=== PATIENT | female | born 1980 | race Caucasian/White ===

== ENCOUNTER → 2016-04-08 | Outpatient (CLI) | payer OTHER ==
[~2016-04-08] MED LIST: MISCCAP80 PO; PRENTAB26 PO; TYL325X PO
--- NOTE | 2016-04-08 10:35 | DIAGNOSTIC IMAGING REPORT ---
ULTRASOUND OF THE SPLEEN CLINICAL HISTORY: Left upper quadrant abdominal pain. COMPARISON STUDY: Abdominal ultrasound dated 12/27/2015. FINDINGS: Real-time, grayscale, and color flow sonography of the spleen is performed. The spleen is normal in size and homogeneous in echotexture, measuring up to 8.6 cm in length. No splenic lesion is seen. There is no perisplenic fluid. The splenic vessels at the splenic hilum appear patent. IMPRESSION: Unremarkable sonographic assessment of the spleen. Electronically signed by: Noah Griffiths M.D. 04/08/2016 10:34 AM Dictated Date/Time: 04/08/2016 10:33 AM
== END | disposition home or self-care (01) ==
LOC: C.ULTRBC 10:08
PROVIDERS: ATTEND Obstetrics & Gynecology
DX: R10.12 Left upper quadrant pain (principal)

== ENCOUNTER 2016-07-21 14:08 | Emergency (ER) | payer OTHER ==
[~2016-07-21] VITALS: Ht 160 cm; Wt 55.3 kg
[~2016-07-21 14:08] MED LIST changes: -MISCCAP80 PO
[2016-07-21 14:14] VITALS: TEMP 36.7; Ht 160 cm; Wt 55.3 kg
--- NOTE | 2016-07-21 14:40 | EMERGENCY ROOM VISIT NOTE ---
History First contact with patient: 14:18 Chief Complaint: CHEST PAIN Stated Complaint: CHEST PAIN History of Present Illness The patient is a 36 year old female who presents to the Emergency Room with complaints of right-sided chest pain which began approximately 10 hours ago. The patient states that she woke up this morning with sharp pains in the right side of her chest which radiate to the left side of the chest. She states that the pain has been sharp and intermittent. She rates the discomfort a 7/10. The pain is worse with movement and deep breaths. She describes a pressure- like sensation across her chest. There is no radiation of the pain. She did not take any medication today for the pain. She does report that this morning, she had tingling in both her hands which has resolved. She does have a history of heartburn but denies any previous history of similar symptoms to these. She denies palpitations, syncope, shortness of breath, nausea, vomiting or abdominal pain. She is otherwise healthy and takes only vitamins daily. She denies any cardiac history. She does not take control pills and is not a smoker. She reports that her father had a CVA at age 70 but she denies any family history of cardiac disease. Review of Systems A complete 10 point review of systems was reviewed with the patient with pertinent positives and negatives as per history of present illness. All else were negative. Social History Smoking Status: Never Smoker Current/Historical Medications Scheduled Probiotic Product (Probiotic), 1 CAP PO DAILY Allergies Coded Allergies: No Known Allergies (Unverified , 07/21/16) Physical Exam Vital Signs Date Time Temp Pulse Resp B/P (MAP) Pulse Ox O2 Delivery O2 Flow Rate FiO2 07/21/16 16:05 78 16 110/73 98 07/21/16 15:03 87 07/21/16 14:51 Room Air 07/21/16 14:14 36.7 76 22 139/91 93 Room Air Physical Exam VITALS: Vitals are noted on the nurse's note and reviewed by myself. Vital signs stable. GENERAL: This is a 36-year-old female, in no acute distress, nondiaphoretic, well-developed well-nourished. HEENT: Normocephalic. PERRLA. EOMI. Nares patent. Mucous membranes moist. Neck is supple without nuchal rigidity. HEART: Regular rate and rhythm without murmurs gallops or rubs. LUNGS: Clear to auscultation bilaterally without wheezes, rales or rhonchi. ABDOMEN: Soft, nontender to palpation. MUSCULOSKELETAL: There is reproducible pain with palpation of the right sternal border. NEURO: Patient was alert and oriented to person place and time. Medical Decision & Procedures ER Provider Diagnostic Interpretation: CHEST ONE VIEW PORTABLE CLINICAL HISTORY: chest pain dyspnea COMPARISON STUDY: No previous studies for comparison. FINDINGS: The bones soft tissues and hemidiaphragms are normal. The cardiomediastinal silhouette is normal. The lungs are clear. The pulmonary vasculature is normal. IMPRESSION: Negative chest. Laboratory Results 07/21/16 14:40 Red Blood Count 4.66, Mean Corpuscular Volume 82.6, Mean Corpuscular Hemoglobin 27.9, Mean Corpuscular Hemoglobin Concent 33.8, Mean Platelet Volume 10.3, Neutrophils (%) (Auto) 62.2, Lymphocytes (%) (Auto) 30.3, Monocytes (%) (Auto) 6.2, Eosinophils (%) (Auto) 1.1, Basophils (%) (Auto) 0.1, Neutrophils # (Auto) 4.53, Lymphocytes # (Auto) 2.21, Monocytes # (Auto) 0.45, Eosinophils # (Auto) 0.08, Basophils # (Auto) 0.01 07/21/16 14:40 Test 07/21/16 14:36 07/21/16 14:40 07/21/16 14:49 Urine Test NEG (NEG) White Blood Count 7.29 K/uL (4.8-10.8) Red Blood Count 4.66 M/uL (4.2-5.4) Hemoglobin 13.0 g/dL (12.0-16.0) Hematocrit 38.5 % (37-47) Mean Corpuscular Volume 82.6 fL (80-100) Mean Corpuscular Hemoglobin 27.9 pg (25-34) Mean Corpuscular Hemoglobin Concent 33.8 g/dl (32-36) Platelet Count 310 K/uL (130-400) Mean Platelet Volume 10.3 fL (7.4-10.4) Neutrophils (%) (Auto) 62.2 % Lymphocytes (%) (Auto) 30.3 % Monocytes (%) (Auto) 6.2 % Eosinophils (%) (Auto) 1.1 % Basophils (%) (Auto) 0.1 % Neutrophils # (Auto) 4.53 K/uL (1.4-6.5) Lymphocytes # (Auto) 2.21 K/uL (1.2-3.4) Monocytes # (Auto) 0.45 K/uL (0.11-0.59) Eosinophils # (Auto) 0.08 K/uL (0-0.5) Basophils # (Auto) 0.01 K/uL (0-0.2) RDW Standard Deviation 44.5 fL (36.4-46.3) RDW Coefficient of Variation 14.8 % (11.5-14.5) Immature Granulocyte % (Auto) 0.1 % Immature Granulocyte # (Auto) 0.01 K/uL (0.00-0.02) Prothrombin Time 10.6 SECONDS (9.0-12.0) Prothromb Time International Ratio 1.0 (0.9-1.1) Activated Partial Thromboplast Time 27.8 SECONDS (21.0-31.0) Partial Thromboplastin Ratio 1.1 Anion Gap 7.0 mmol/L (3-11) Est Creatinine Clear Calc Drug Dose 86.9 ml/min Estimated GFR () 120.8 Estimated GFR (Non- 104.2 BUN/Creatinine Ratio 12.5 (10-20) Calcium Level 8.4 mg/dl (8.5-10.1) Total Bilirubin 0.4 mg/dl (0.2-1) Aspartate Amino Transf (AST/SGOT) 11 U/L (15-37) Alanine Aminotransferase (ALT/SGPT) 18 U/L (12-78) Alkaline Phosphatase 50 U/L (45-117) Total Protein 8.2 gm/dl (6.4-8.2) Albumin 3.8 gm/dl (3.4-5.0) Globulin 4.4 gm/dl (2.5-4.0) Albumin/Globulin Ratio 0.9 (0.9-2) Bedside D-Dimer 406 ng/mlFEU (0-450) Bedside Troponin I < 0.030 ng/ml (0-0.045) ECG Indication: chest pain Rate (beats per minute): 81 Rhythm: normal sinus Findings: no acute ischemic change, no ectopy Comparison ECG Date: no prior available ED Course The patient was evaluated as above. Labs were drawn and IV access was obtained. Patient was reevaluated and findings were discussed. She is ready for discharge. Discharge instructions were reviewed with the patient. The patient verbalized understanding of my assessment and treatment plan and was discharged home in good condition. Medical Decision Differential diagnosis includes acute coronary syndrome, pulmonary embolism, pneumothorax, pericarditis, myocarditis, endocarditis, anxiety, musculoskeletal pain, GERD, costochondritis, pneumonia, among others. The patient is a 36-year-old female who presents today complaining of right- sided chest pain. Labs revealed no leukocytosis, anemia or concerning electrolyte abnormalities. Troponin was not elevated. D-dimer was not elevated. Urine was negative. EKG was interpreted by myself and shows and normal sinus rhythm without ischemia or ectopy. Chest x-ray was unremarkable. The patient's pain is reproducible to palpation of the right sternal border. I feel she likely has costochondritis or other musculoskeletal cause of her pain. She was instructed to take ibuprofen, 600 mg every 6 hours until symptoms have resolved. She was instructed to follow-up with her primary care provider this week for further evaluation. The patient's case was reviewed with Dr. Maddox, ED attending physician, who agreed with my assessment and treatment plan. Based on the patient's presentation and work up, I feel the patient is stable for outpatient treatment. The patient was educated to return to the emergency department for any worsening of their current condition or new/concerning symptoms. She will follow up with her PCP. Medication reconciliation: I attest that I have personally reviewed the patient 's current medication list. Blood pressure screening: Patient was found to have normal blood pressure on screening and does not require follow-up. Impression Primary Impression: Right-sided chest pain Departure Information Dispostion Home / Self-Care Condition GOOD Referrals No Doctor, Assigned (PCP) Patient Instructions My [facility] Additional Instructions You have been treated in the Emergency Department for your Chest Pain. Laboratory results and Imaging Studies have ruled out any acute cardiac or pulmonary cause of your chest pain. You should begin taking ibuprofen, 600 mg every 6 hours until your pain has resolved. This is an eewu-puk-lnetmlk medication. For pain control, you can also use the following giyf-jjj-djfhgxb medicines (if >12 yo): - Regular strength (325mg/tab) Tylenol (acetaminophen) 2 tabs every 4-6 hours as needed. Do not exceed 12 tablets in a 24 hour period. Avoid taking more than 4 grams (4000 mg) of Tylenol per day. This includes any other sources of acetaminophen you may take on a regular basis. You should schedule a follow-up appointment with your Primary Care Provider in 2 -3 days for further evaluation from today's Emergency Department visit. Return to the Emergency Department if your current symptoms worsen despite treatment course outlined above, or if you develop any of the following symptoms : worsening chest pain, associated jaw/arm pain, nausea, dizziness, shortness of breath, bloody cough, or fainting.
--- NOTE | 2016-07-21 14:51 | DIAGNOSTIC IMAGING REPORT ---
CHEST ONE VIEW PORTABLE CLINICAL HISTORY: chest pain dyspnea COMPARISON STUDY: No previous studies for comparison. FINDINGS: The bones soft tissues and hemidiaphragms are normal. The cardiomediastinal silhouette is normal. The lungs are clear. The pulmonary vasculature is normal. IMPRESSION: Negative chest. Electronically signed by: Josue Barlow M.D. 07/21/2016 2:50 PM Dictated Date/Time: 07/21/2016 2:50 PM
[2016-07-21 14:54] LABS: BASO % 0.1 %; BASO ABS # 0.01 K/uL (0-0.2); COMPLETE YES; EOS % 1.1 %; HEMATOCRIT 38.5 % (37-47); IG% 0.1 %; LYMPH % 30.3 %; LYMPH ABS # 2.21 K/uL (1.2-3.4); MEAN CELL VOLUME 82.6 fL (80-100); MEAN CORPUSCULAR HEMOGLOBIN 27.9 pg (25-34); MEAN CORPUSCULAR HGB CONC 33.8 g/dl (32-36); MEAN PLATELET VOLUME 10.3 fL (7.4-10.4); MONO % 6.2 %; NEUT % 62.2 %; PLATELET COUNT 310 K/uL (130-400); RED BLOOD COUNT 4.66 M/uL (4.2-5.4); WHITE BLOOD COUNT 7.29 K/uL (4.8-10.8)
[2016-07-21 15:03] LABS: PARTIAL THROMBOPLASTIN RATIO 1.1; PROTHROMBIN TIME (PATIENT) 10.6 SECONDS (9.0-12.0)
[2016-07-21 15:08] LABS: POINT OF CARE TROPONIN I < 0.030 ng/ml (0-0.045)
[2016-07-21] MEDS ORDERED: MISCCAP80 PO (15:08)
[2016-07-21 15:15] LABS: BUN/CREATININE RATIO 12.5 (10-20); CALCIUM 8.4 mg/dl (8.5-10.1); CREATININE 0.74 mg/dl (0.60-1.20); POTASSIUM 3.6 mmol/L (3.5-5.1)
[2016-07-21 15:18] LABS: ALB/GLOB RATIO 0.9 (0.9-2)
[2016-07-21 15:38] LABS: PREG INTERNAL NEGATIVE QC NEG CLEAR BACKGROUND; PREG INTERNAL POSITIVE QC POS CONTROL LINE
[2016-07-21 16:05] VITALS: BP 110/73; PULSE 78; O2SAT 98
== END 2016-07-21 16:06 | disposition home or self-care (01) ==
LOC: C.EDB 14:09
DX: R07.9 Chest pain, unspecified (principal); Z79.899 Other long term (current) drug therapy

== ENCOUNTER → 2016-11-10 | Outpatient (CLI) | payer OTHER ==
[~2016-11-10] MED LIST changes: +MISCCAP80 PO; -PRENTAB26 PO; -TYL325X PO
== END | disposition home or self-care (01) ==
LOC: C.LABBC 15:33
PROVIDERS: ATTEND Obstetrics & Gynecology
DX: Z34.81 Encounter for supervision of other normal pregnancy, first trimester (principal); Z3A.00 Weeks of gestation of pregnancy not specified

== ENCOUNTER → 2016-11-12 | Outpatient (CLI) | payer OTHER | END | disposition home or self-care (01) | LOC: C.LABBC 12:49 | PROVIDERS: ATTEND Obstetrics & Gynecology | DX: Z34.81 Encounter for supervision of other normal pregnancy, first trimester (principal) ==

== ENCOUNTER → 2016-11-17 | Outpatient (CLI) | payer OTHER | END | disposition home or self-care (01) | LOC: C.PAPS 16:57 | PROVIDERS: ATTEND Obstetrics & Gynecology | DX: Z34.81 Encounter for supervision of other normal pregnancy, first trimester (principal) ==

== ENCOUNTER → 2016-11-17 | Outpatient (CLI) | payer OTHER ==
[2016-11-21 00:32] LABS: CHLAMYDIA TRACH RNA*** NOT DETECTED (NOT DETECTED); GC (NEIS GONORRHOEAE)RNA** NOT DETECTED (NOT DETECTED)
== END | disposition home or self-care (01) ==
LOC: C.LABSPEC 14:43
PROVIDERS: ATTEND Obstetrics & Gynecology
DX: Z34.81 Encounter for supervision of other normal pregnancy, first trimester (principal); Z3A.00 Weeks of gestation of pregnancy not specified

== ENCOUNTER → 2017-03-25 | Outpatient (CLI) | payer OTHER ==
[2017-03-25 12:17] LABS: BASO % 0.1 %; BASO ABS # 0.01 K/uL (0-0.2); EOS % 0.9 %; HEMATOCRIT 32.7 % (37-47); HEMOGLOBIN 10.7 g/dL (12.0-16.0); IG# 0.04 K/uL (0.00-0.02); LYMPH % 19.1 %; MEAN CELL VOLUME 84.1 fL (80-100); MEAN CORPUSCULAR HEMOGLOBIN 27.5 pg (25-34); MEAN CORPUSCULAR HGB CONC 32.7 g/dl (32-36); MEAN PLATELET VOLUME 10.5 fL (7.4-10.4); MONO % 4.5 %; NEUT ABS # 8.24 K/uL (1.4-6.5); PLATELET COUNT 310 K/uL (130-400); RED CELL DISTRIBUTION WIDTH CV 15.7 % (11.5-14.5); RED CELL DISTRIBUTION WIDTH SD 47.9 fL (36.4-46.3); WHITE BLOOD COUNT 10.99 K/uL (4.8-10.8)
== END | disposition home or self-care (01) ==
LOC: C.LAB 09:24
PROVIDERS: ATTEND Obstetrics & Gynecology
DX: Z34.82 Encounter for supervision of other normal pregnancy, second trimester (principal)

== ENCOUNTER → 2017-04-01 | Outpatient (CLI) | payer OTHER | END | disposition home or self-care (01) | LOC: C.LAB 08:25 | PROVIDERS: ATTEND Obstetrics & Gynecology | DX: Z34.82 Encounter for supervision of other normal pregnancy, second trimester (principal); R73.9 Hyperglycemia, unspecified; Z3A.00 Weeks of gestation of pregnancy not specified ==

== ENCOUNTER → 2017-06-02 | Outpatient (CLI) | payer OTHER | END | disposition home or self-care (01) | LOC: C.LABSPEC 14:22 | PROVIDERS: ATTEND Obstetrics & Gynecology | DX: Z34.83 Encounter for supervision of other normal pregnancy, third trimester (principal) ==

== ENCOUNTER 2017-06-29 08:30 | Inpatient (IN) | payer OTHER ==
--- NOTE | 2017-06-16 16:20 | HISTORY & PHYSICAL EXAMINATION ---
DATE OF ADMISSION: 06/29/2017 CHIEF COMPLAINT: Previous , history of cephalopelvic disproportion. HISTORY OF PRESENT ILLNESS: The patient is a 37-year-old 4, para 2. She has had 2 first trimester spontaneous ABs. She elected not to have a genetic testing earlier in her . Her last menstrual period was on 10/05/2016 and her due date is 07/02/2017. She has had an uneventful course. Her first delivery was in 2012, she had a girl, 7 pounds 8 ounces at 40 weeks, a 24-hour labor and arrest of labor at 6 cm dilatation. Secondary to cephalopelvic disproportion, she delivered at the hospital in [place], [place], presently being scheduled for a repeat at 39+ weeks gestation. PAST MEDICAL HISTORY: She has a girl 4-1/2 years old, in good health. ALLERGIES: She has no known drug allergies. PAST SURGICAL HISTORY: Her only surgery was a previous in 2012. She has no history of rheumatic fever, heart disease, heart murmur, diabetes, tuberculosis. SOCIAL HISTORY: No smoking, no alcohol intake. She works for a psychiatrist. FAMILY HISTORY: Mother 75, has high blood pressure, diabetes. Father 79, high blood pressure. She has 7 sisters and 2 brothers, all in good health. REVIEW OF SYSTEMS: HEAD: No symptoms of frequent or severe headaches. EYES: No symptoms of blurred vision, double vision. EARS: No symptoms of frequent ear infection, difficulty hearing. NOSE: No symptoms of frequent nosebleeds, difficulty breathing through her nose. THROAT: No symptoms of frequent or severe sore throats, difficulty swallowing. RESPIRATORY SYSTEM: No history of asthma, chest pain, shortness of breath. PHYSICAL EXAMINATION: GENERAL: A well-developed, well-nourished 37-year-old female, alert, oriented x3 and cooperative, in no acute distress, appears stated age. EYES: Conjunctivae are pink. Sclerae white, no evidence of jaundice. EARS: Ears had normal light reflex bilaterally. NOSE: Nose had normal mucosa. Septum is midline. There were no polyps. THROAT: Throat had no erythema or evidence of infection. Teeth are in good state of repair. HEAD: Head was normocephalic, normal distribution of hair. NECK: Neck was supple. Trachea midline. Thyroid is not enlarged. There is no adenopathy appreciated. HEART: Heart had regular rhythm. S1 and S2 are normal. BREASTS: Breast exam was normal. ABDOMEN: Revealed a term-sized fetus, estimated weight 8 pounds. There is a well-healed Pfannenstiel scar. PELVIC EXAMINATION: Revealed vertex floating. Cervix posterior, closed. MUSCULOSKELETAL EXAMINATION: Revealed no calf tenderness. IMPRESSIONS OF THIS CASE: Intrauterine , for repeat section, macrosomia.
--- NOTE | 2017-06-23 12:11 | PAT Medication Instructions ---
Service Date June 23, 2017. Current Home Medication List Multivit/Min/Iron/Fol Ac/Pren ( Vitamin), 1 TAB PO QAM [Iron Tab], 1 TAB PO QAM Medication Instructions For Your Scheduled Surgery - Hold the following medications the morning of surgery: Multivit/Min/Iron/Fol Ac/Pren ( Vitamin), 1 TAB PO QAM [Iron Tab], 1 TAB PO QAM If you have any questions please call us at [phone] or [phone] or [phone]
[2017-06-23 13:25] LABS: BASO % 0.2 %; BASO ABS # 0.02 K/uL (0-0.2); EOS % 0.3 %; EOS ABS # 0.03 K/uL (0-0.5); HEMOGLOBIN 12.5 g/dL (12.0-16.0); IG# 0.03 K/uL (0.00-0.02); LYMPH % 23.4 %; LYMPH ABS # 2.04 K/uL (1.2-3.4); MEAN CELL VOLUME 85.1 fL (80-100); MEAN CORPUSCULAR HEMOGLOBIN 28.7 pg (25-34); MEAN CORPUSCULAR HGB CONC 33.8 g/dl (32-36); MEAN PLATELET VOLUME 11.2 fL (7.4-10.4); MONO % 7.1 %; MONO ABS # 0.62 K/uL (0.11-0.59); NEUT % 68.7 %; NEUT ABS # 5.98 K/uL (1.4-6.5); PLATELET COUNT 210 K/uL (130-400); RED CELL DISTRIBUTION WIDTH CV 17.6 % (11.5-14.5); RED CELL DISTRIBUTION WIDTH SD 54.8 fL (36.4-46.3); WHITE BLOOD COUNT 8.72 K/uL (4.8-10.8)
[2017-06-23 13:32] LABS: INR 0.9 (0.9-1.1)
[2017-06-23 15:20] LABS: BLOOD UREA NITROGEN 8 mg/dl (7-18); CALCIUM 8.7 mg/dl (8.5-10.1); CARBON DIOXIDE 22 mmol/L (21-32); CREATININE 0.59 mg/dl (0.60-1.20); GLUCOSE 87 mg/dl (70-99); POTASSIUM 3.7 mmol/L (3.5-5.1); SODIUM 137 mmol/L (136-145)
[~2017-06-29] VITALS: Ht 160 cm; Wt 70.5 kg
[~2017-06-29 08:30] MED LIST changes: +IRON TAB PO; -MISCCAP80 PO; +PRENTAB26 PO
[2017-07-01] VITALS (10 sets, daily range): BP systolic 103–129; BP diastolic 64–87; PULSE 94–96; TEMP 36.7–37.1; O2SAT 96–99; Ht 160 cm; Wt 70.5 kg
[2017-07-01] MEDS ORDERED: LACTATED RINGER'S 1000ML 1,000 ML IV ONE (05:21)
[2017-07-01] MEDS ORDERED: LACTATED RINGER'S 1000ML 1,000 ML IV SCH ×2 (06:00→07:31)
[2017-07-01] MEDS ORDERED: CEFOXITIN IV 2,000 MG in DEXTROSE 5% 50ML 50 ML IV SCH (06:00)
[2017-07-01] MEDS ORDERED: CITRIC ACID/SODIUM CITRATE 15 ML UDC PO SCH (06:00)
[2017-07-01] MEDS ORDERED: CEFOXITIN IV 2000 MG in DEXTROSE 5% 50ML IV SCH (06:00)
[2017-07-01 06:18] LABS: BASO % 0.1 %; BASO ABS # 0.01 K/uL (0-0.2); EOS % 0.7 %; EOS ABS # 0.06 K/uL (0-0.5); HEMATOCRIT 34.9 % (37-47); HEMOGLOBIN 11.8 g/dL (12.0-16.0); IG# 0.02 K/uL (0.00-0.02); LYMPH % 26.7 %; LYMPH ABS # 2.36 K/uL (1.2-3.4); MEAN CELL VOLUME 85.7 fL (80-100); MEAN CORPUSCULAR HGB CONC 33.8 g/dl (32-36); MEAN PLATELET VOLUME 10.6 fL (7.4-10.4); MONO % 7.1 %; MONO ABS # 0.63 K/uL (0.11-0.59); NEUT % 65.2 %; NEUT ABS # 5.77 K/uL (1.4-6.5); PLATELET COUNT 172 K/uL (130-400); RED CELL DISTRIBUTION WIDTH CV 17.6 % (11.5-14.5); RED CELL DISTRIBUTION WIDTH SD 55.7 fL (36.4-46.3); WHITE BLOOD COUNT 8.85 K/uL (4.8-10.8)
[2017-07-01 06:38] LABS: INR 0.9 (0.9-1.1); PTT PATIENT 24.6 SECONDS (21.0-31.0)
[2017-07-01 07:09] LABS: CALCIUM 8.3 mg/dl (8.5-10.1); CREATININE 0.54 mg/dl (0.60-1.20); POTASSIUM 3.7 mmol/L (3.5-5.1)
[2017-07-01] MEDS ORDERED: FENTANYL CITRATE INJ 50 MCG/1 ML 2 ML VIAL ONE (07:27)
[2017-07-01] MEDS ORDERED: MoRPHine SULFATE PF 1 MG/ML 10 ML AMP/VIAL ONE (07:29)
--- NOTE | 2017-07-01 07:31 | History & Physical Bridge Note ---
H&P Re-Evaluation Bridge Note: I have examined the patient, reviewed the History & Physical and in the interval since the performance of the History & Physical I have noted the following changes of clinical significance: No changes noted
[2017-07-01] MEDS ORDERED: CITRIC ACID/SODIUM CITRATE 15 ML UDC PO ONE (07:45)
[2017-07-01] MEDS ORDERED: OXYTOCIN INJ 10 UNITS/ML VIAL ONE ×2 (10:56→12:01)
[2017-07-01] MEDS ORDERED: OXYTOCIN INJ 10 UNITS/ML VIAL IM ONE (11:32)
[2017-07-01] MEDS ORDERED: PHENYLEPHRINE 100MCG/ML 5ML SYR ONE (11:53)
--- NOTE | 2017-07-01 12:17 | [facility] Post Operative Brief Note ---
Immediate Operative Summary Operative Date July 01, 2017. Pre-Operative Diagnosis Previous Caesaren Section;Term ;Expected Macrosomia Post-Operative Diagnosis Same nucal cord x 1 adhesions thin lower uterine segment Procedure(s) Performed Repeat Caesarean Section; Delivery of a live female child at [address] Domingo Stagecraft Professor Surgeon(s) Dr. Watkins Estimated Blood Loss 600 cc Findings Consistent with Post-Op Diagnosis Fluids (cc crystalloids) 1300 ml Specimens cord blood placenta-hold Drains None Anesthesia Type Spinal Complication(s) none Disposition Accompanied Pt To Recover: no Disposition: L&D Overlapping Procedure I was immediately available: during the entire case
[2017-07-01] MEDS ORDERED: NALOXONE HCL INJ 0.08 MG in SYRINGE 1.8 ML IV PRN (12:23)
[2017-07-01] MEDS ORDERED: NALOXONE HCL INJ 1 MG in SODIUM CHLORIDE 0.9% 1000ML 1,000 ML IV PRN ×4 (12:23)
[2017-07-01] MEDS ORDERED: SODIUM CHLORIDE 0.9% 1000ML 1,000 ML IV PRN (12:23)
[2017-07-01] MEDS ORDERED: LACTATED RINGER'S 1000ML 500 ML IV PRN (12:23)
[2017-07-01] MEDS ORDERED: NO NARCOTICS OR SEDATIVES SCH (12:30)
[2017-07-01] MEDS ORDERED: SUPERCREAM 0.870 % 15GM JAR EXT PRN (12:30)
[2017-07-01] MEDS ORDERED: LANOLIN OINT EXT PRN (12:30)
[2017-07-01] MEDS ORDERED: ONDANSETRON INJ 2 MG/ML 2 ML VIAL IV PRN (12:30)
[2017-07-01] MEDS ORDERED: BENZOCAINE 20% AER SPR 82.5 GM CAN EXT PRN (12:30)
[2017-07-01] MEDS ORDERED: EpHEDrine SULFATE INJ 50 MG/ML AMP IV PRN (12:30)
[2017-07-01] MEDS ORDERED: DIPHTHERIA/TETANUS/PERTUSSIS 0.5 ML SYR/VIAL IM. ONE (12:30)
[2017-07-01] MEDS ORDERED: HYDROCORTISONE ACETATE 25 MG SUPP PR PRN (12:30)
[2017-07-01] MEDS ORDERED: NALOXONE HCL 0.4 MG/1 ML VIAL/CARP IV PRN (12:30)
[2017-07-01] MEDS ORDERED: DiphenhydrAMINE HCL 50 MG/ML VIAL IV PRN (12:30)
[2017-07-01] MEDS ORDERED: MoRPHine SULFATE PF 1 MG/ML 10 ML AMP/VIAL EPI PRN (12:30)
[2017-07-01] MEDS ORDERED: PROMETHAZINE HCL INJ 25 MG in SODIUM CHLORIDE 0.9% 50ML 50 ML IV PRN (12:30)
[2017-07-01] MEDS ORDERED: MAGNESIUM HYDROXIDE SUSP 30 ML UDC PO PRN (12:30)
[2017-07-01] MEDS ORDERED: NALBUPHINE HCL INJ 10 MG/ML AMP IV PRN (12:30)
[2017-07-01] MEDS ORDERED: SENNA 8.6 MG TAB PO PRN (12:30)
[2017-07-01] MEDS ORDERED: DC INTRASPINAL MORPHINE SCH (12:30)
--- NOTE | 2017-07-01 13:04 | OPERATIVE REPORT ---
DATE OF OPERATION: 07/01/2017 PROCEDURE: This is an operative notation of a repeat section. INDICATIONS FOR SURGERY: Previous , intrauterine , 39+ weeks gestation, suspected macrosomia. POSTOPERATIVE DIAGNOSES: Same, nuchal cord x1, thin lower uterine segment, bladder and abdominal adhesions. SURGEON: Cely Domingo MD PILE DRIVING TECHNICIAN: Dc Watkins MD ESTIMATED BLOOD LOSS: 600 mL. ANESTHESIA: Spinal. OPERATIVE FINDINGS AND PROCEDURE: The patient was brought to the OR table, correctly identified by armband and conversation. Spinal anesthesia was administered. Compression stockings were applied and also a Henry catheter was inserted and aseptically connected to gravity drainage. The lower abdomen was painted with an alcohol-based sterilizing solution and draped in usual sterile fashion. A timeout was called. The patient was identified and the procedure. The level of the anesthesia was checked. An incision was made through the previous Pfannenstiel scar. Hemostasis was secured by electrocauterization. The fascia was incised transversely from the underlying muscle by blunt and sharp dissection. Recti muscles were in midline exposing the peritoneum, which was carefully raised and entered. At this time, there were some omental adhesions to the top to the incision and also the bladder was adhesed to the lower uterine segment. We dissected these adhesions off and exposed the lower uterine segment. It was then in the middle we made an incision right at the top of the thin part and then entered the uterine cavity and extended the incision with 2 fingers bluntly. The fluid was clear. I applied a vectis retractor to the 's head. With fundal pressure, we delivered the head. The was suctioned through the mouth and the nose. Recreation Worker was present at the time of delivery. Then we took a nuchal cord and reduced it around the head and delivered the shoulders, then clamped the cord and cut the cord. We collected cord blood. I removed the placenta manually. Uterus, tubes, and ovaries were brought out through the incision. The uterus was cleansed with a clean sponge. Ten units of Pitocin was injected into the myometrium. We then approximated the muscular layer with a heavy duty chromic and also bolstered the thin area on the uterus after this layer was closed. Hemostasis was good. The integrity of the lower uterine segment was restored. I then did a horizontal suture of heavy duty Vicryl layer over this which further brought together the lower uterine segment and I did 2-3 interrupted wyfbxd-ow-uteyi sutures of Vicryl to bring the lower uterine segment together and to get good hemostasis. Following this, we reperitonealized as much as we could, then cleansed the pelvis of all blood clots and debris, inspected the tubes and ovaries, they were normal. We inserted the uterus, tubes, and ovaries into the pelvic cavity and checked for hemostasis. We then did a careful anatomical approximation of the peritoneal edges and also put Seprafilm in the bladder area where it had been adhesed, where there was no peritoneum to bring together. Following this, the recti muscles were approximated with interrupted opondm-ss-orhkn suture of chromic catgut. The fascia was closed with continuous interlocking suture of Vicryl on each side and tied in the midline. SubQ was approximated with running plain. The skin edges were approximated with staple clips. The patient tolerated the procedure well and left the OR in good condition. I attest to the content of the Intraoperative Record and any orders documented therein. Any exception s are noted below.
[2017-07-01] MEDS: KETOROLAC TROMETHAMINE 30 MG/ML VIAL IV. PRN ×2 (14:45→23:28)
[2017-07-01] MEDS: OXYTOCIN INJ 20 UNITS in LACTATED RINGER'S 1000ML 1,000 ML IV SCH ×2 (15:12→23:21)
[2017-07-01] MEDS: SIMETHICONE 80 MG CHEW PO SCH ×3 (15:30→19:34)
--- NOTE | 2017-07-01 15:32 | Anesthesiology Progress Note ---
Anesthesia Post Op Note Date & Time July 01, 2017 at 15:32 Vital Signs Pain Intensity: 7.0 Notes Mental Status: alert / awake / arousable, participated in evaluation Pt Amnestic to Procedure: Yes Nausea / Vomiting: adequately controlled Pain: adequately controlled Airway Patency, RR, SpO2: stable & adequate BP & HR: stable & adequate Hydration State: stable & adequate Neuraxial Anesthesia: was administered, sensory block is resolving Anesthetic Complications: no major complications apparent
[2017-07-01] MEDS: HYDROmorphone INJ 0.5 MG/0.5 ML SYR IV PRN ×2 (17:19→17:27)
[2017-07-01] MEDS: DOCUSATE SODIUM 100 MG CAP PO SCH (19:34)
[2017-07-02] VITALS (9 sets, daily range): BP systolic 94–117; BP diastolic 60–79; PULSE 89–96; TEMP 36.3–36.9; O2SAT 95–98
[2017-07-02] MEDS ORDERED: ONDANSETRON INJ 2 MG/ML 2 ML VIAL IV PRN (04:00)
[2017-07-02] MEDS ORDERED: OXYCODONE/ACETAMINOPHEN 5-325 TAB PO PRN (04:00)
[2017-07-02] MEDS ORDERED: MEPERIDINE HCL 50 MG/ML CARP IV PRN ×2 (06:00)
[2017-07-02] MEDS ORDERED: DiphenhydrAMINE HCL 50 MG/ML VIAL IV PRN (06:00)
[2017-07-02] MEDS ORDERED: KETOROLAC TROMETHAMINE 30 MG/ML VIAL IV. PRN (06:00)
[2017-07-02] MEDS ORDERED: ZOLPIDEM TARTRATE 5 MG TAB PO PRN (06:00)
[2017-07-02 06:28] LABS: BASO % 0.1 %; BASO ABS # 0.01 K/uL (0-0.2); EOS % 0.5 %; EOS ABS # 0.07 K/uL (0-0.5); HEMATOCRIT 30.1 % (37-47); HEMOGLOBIN 10.3 g/dL (12.0-16.0); IG# 0.03 K/uL (0.00-0.02); LYMPH % 13.2 %; LYMPH ABS # 1.77 K/uL (1.2-3.4); MEAN CELL VOLUME 84.6 fL (80-100); MEAN CORPUSCULAR HEMOGLOBIN 28.9 pg (25-34); MEAN CORPUSCULAR HGB CONC 34.2 g/dl (32-36); MEAN PLATELET VOLUME 10.2 fL (7.4-10.4); MONO % 4.9 %; MONO ABS # 0.66 K/uL (0.11-0.59); NEUT % 81.1 %; NEUT ABS # 10.85 K/uL (1.4-6.5); PLATELET COUNT 160 K/uL (130-400); RED CELL DISTRIBUTION WIDTH CV 17.1 % (11.5-14.5); RED CELL DISTRIBUTION WIDTH SD 53.5 fL (36.4-46.3); WHITE BLOOD COUNT 13.39 K/uL (4.8-10.8)
[2017-07-02] MEDS: OXYCODONE/ACETAMINOPHEN 5-325 TAB PO PRN ×4 (06:36→20:49)
[2017-07-02] MEDS: IBUPROFEN 600 MG TAB PO PRN ×4 (06:36→20:49)
[2017-07-02] MEDS: PRENATAL VITAMIN TAB PO SCH (08:04)
[2017-07-02] MEDS: DOCUSATE SODIUM 100 MG CAP PO SCH ×2 (08:04→19:52)
[2017-07-02] MEDS: FERROUS SULFATE 325 MG TAB PO SCH (08:04)
[2017-07-02] MEDS: SIMETHICONE 80 MG CHEW PO SCH ×4 (08:04→19:53)
--- NOTE | 2017-07-02 09:32 | Progress Note ---
Subjective July 02, 2017. Subjective conversation w/ patient Ambulation: ambulating normally Voiding: no voiding problems Passing Gas: Yes Diet Tolerance: Regular Diet Lochia: Small Feeding Type: Breast Feeding Review of Systems Constitutional: + fever Objective Vital Signs Date Time Temp Pulse Resp B/P (MAP) Pulse Ox O2 Delivery O2 Flow Rate FiO2 07/02/17 08:00 36.3 96 18 94/63 (73) 98 Room Air 07/02/17 04:30 16 96 07/02/17 03:30 18 98 07/02/17 03:10 36.9 92 18 117/79 (92) 98 Room Air 07/02/17 02:30 16 95 07/02/17 01:30 18 97 07/02/17 00:30 18 98 07/01/17 23:30 18 98 07/01/17 23:30 37.1 94 18 122/79 (93) 98 Room Air 07/01/17 23:30 98 Room Air 07/01/17 21:30 16 97 07/01/17 20:30 16 97 07/01/17 19:30 16 98 07/01/17 19:12 37.0 96 16 129/87 (101) 99 Room Air 07/01/17 18:30 16 98 07/01/17 17:30 18 96 07/01/17 16:30 16 99 07/01/17 15:30 98 Room Air 07/01/17 15:30 36.7 94 18 103/64 (77) 98 Room Air 07/01/17 15:30 18 98 07/01/17 15:30 98 Room Air Physical Exam General Appearance: WELL-APPEARING Respiratory/Chest: lungs clear Abdomen: normal bowel sounds, non tender Fundus: Firm, Non-Tender Incision Description: Clean, Dry & Intact Extremities: no pedal edema, no calf tenderness Laboratory Results Last 24 Hours Test 07/02/17 06:12 White Blood Count 13.39 K/uL Red Blood Count 3.56 M/uL Hemoglobin 10.3 g/dL Hematocrit 30.1 % Mean Corpuscular Volume 84.6 fL Mean Corpuscular Hemoglobin 28.9 pg Mean Corpuscular Hemoglobin Concent 34.2 g/dl Platelet Count 160 K/uL Mean Platelet Volume 10.2 fL Neutrophils (%) (Auto) 81.1 % Lymphocytes (%) (Auto) 13.2 % Monocytes (%) (Auto) 4.9 % Eosinophils (%) (Auto) 0.5 % Basophils (%) (Auto) 0.1 % Neutrophils # (Auto) 10.85 K/uL Lymphocytes # (Auto) 1.77 K/uL Monocytes # (Auto) 0.66 K/uL Eosinophils # (Auto) 0.07 K/uL Basophils # (Auto) 0.01 K/uL RDW Standard Deviation 53.5 fL RDW Coefficient of Variation 17.1 % Immature Granulocyte % (Auto) 0.2 % Immature Granulocyte # (Auto) 0.03 K/uL Assessment and Plan Post-Op Day#: 1 Continue Routine Care: bandage removed
[2017-07-02] MEDS ORDERED: BISACODYL 5 MG TABEC PO ONE (22:00)
[2017-07-03 00:30] VITALS: BP 114/74; PULSE 102; TEMP 36.8
[2017-07-03] MEDS: IBUPROFEN 600 MG TAB PO PRN ×5 (01:04→21:08)
[2017-07-03] MEDS: OXYCODONE/ACETAMINOPHEN 5-325 TAB PO PRN ×5 (01:05→21:08)
--- NOTE | 2017-07-03 06:15 | Progress Note ---
Subjective July 03, 2017. Subjective conversation w/ patient Ambulation: ambulating normally Voiding: no voiding problems Passing Gas: Yes Diet Tolerance: Regular Diet Lochia: Small Feeding Type: Breast Feeding Review of Systems Constitutional: + fever Objective Vital Signs Date Time Temp Pulse Resp B/P (MAP) Pulse Ox O2 Delivery O2 Flow Rate FiO2 07/03/17 00:30 36.8 102 18 114/74 (87) Room Air 07/03/17 00:30 Room Air 07/02/17 15:30 36.4 89 20 104/68 (80) Room Air 07/02/17 15:30 Room Air 07/02/17 12:00 36.5 90 18 95/60 (72) 98 Room Air 07/02/17 08:00 36.3 96 18 94/63 (73) 98 Room Air Physical Exam General Appearance: WELL-APPEARING Abdomen: non tender Fundus: Firm, Non-Tender Incision Description: Clean, Dry & Intact Extremities: no pedal edema, no calf tenderness Assessment and Plan Post-Op Day#: 2
[2017-07-03] MEDS: DOCUSATE SODIUM 100 MG CAP PO SCH ×2 (08:39→20:20)
[2017-07-03] MEDS: PRENATAL VITAMIN TAB PO SCH (08:39)
[2017-07-03] MEDS: SIMETHICONE 80 MG CHEW PO SCH ×4 (08:39→20:20)
[2017-07-03] MEDS: FERROUS SULFATE 325 MG TAB PO SCH (08:39)
[2017-07-03 09:05] VITALS: BP 133/87; PULSE 98; TEMP 36.5; O2SAT 99
[2017-07-03] MEDS ORDERED: BISACODYL 10 MG SUPP PR PRN (12:30)
[2017-07-03 16:20] VITALS: BP 126/83; PULSE 102; TEMP 36.7; O2SAT 99
[2017-07-04 00:15] VITALS: BP 124/84; PULSE 84; TEMP 36.6; O2SAT 97
[2017-07-04] MEDS: IBUPROFEN 600 MG TAB PO PRN ×3 (00:28→10:55)
[2017-07-04] MEDS: OXYCODONE/ACETAMINOPHEN 5-325 TAB PO PRN ×2 (00:28→10:55)
[2017-07-04 08:15] VITALS: BP 129/84; PULSE 89; TEMP 36.9
[2017-07-04] MEDS: PRENATAL VITAMIN TAB PO SCH (08:59)
[2017-07-04] MEDS: SIMETHICONE 80 MG CHEW PO SCH ×2 (08:59→12:00)
[2017-07-04] MEDS: FERROUS SULFATE 325 MG TAB PO SCH (09:00)
--- NOTE | 2017-07-04 09:02 | Progress Note ---
Subjective July 04, 2017. Subjective conversation w/ patient Ambulation: ambulating normally Voiding: no voiding problems Passing Gas: Yes Diet Tolerance: Regular Diet Lochia: Small Feeding Type: Breast Feeding Review of Systems Constitutional: + fever Objective Vital Signs Date Time Temp Pulse Resp B/P (MAP) Pulse Ox O2 Delivery O2 Flow Rate FiO2 07/04/17 00:15 Room Air 07/04/17 00:15 36.6 84 16 124/84 (97) 97 Room Air 07/03/17 16:20 36.7 102 20 126/83 (97) 99 Room Air 07/03/17 16:20 99 Room Air 07/03/17 09:05 Room Air 07/03/17 09:05 36.5 98 16 133/87 (102) 99 Room Air Physical Exam General Appearance: WELL-APPEARING Abdomen: non tender Fundus: Firm, Non-Tender Incision Description: Clean, Dry & Intact Extremities: no pedal edema, no calf tenderness Assessment and Plan Post-Op Day#: 3
[2017-07-04] MEDS: DOCUSATE SODIUM 100 MG CAP PO SCH (09:03)
--- NOTE | 2017-07-04 09:04 | Discharge Instructions ---
Discharge Instructions Date of Service July 04, 2017. Admission Reason for Admission: Term , Previous Section Discharge Discharge Diagnosis / Problem: repeat section Discharge Goals Goal(s): Routine recovery after Activity Recommendations Activity Limitations: as noted below ACTIVITY RECOMMENDATIONS: * Gradual return to full activity over the next 2-3 weeks. * No lifting - nothing heavier than baby over the next 2-3 weeks. * Do not engage in vigorous exercise, sexual activity or sports for 6 weeks. * Do not drive or operate any motorized equipment for 14 days. * You may shower/bathe daily. DIET: Resume Previous Diet If Breast-feeding: * Increase caloric intake by 500 calories, eat 3 well balanced meals, 2 high protein snacks a day and drink 6-8 8oz. glasses of fluid per day. BREAST CARE: If you are not breast feeding: * Wear a supportive bra 24 hours a day for one to two weeks. * Avoid stimulating your breasts and nipples as much as possible during the first few weeks after delivery. * When taking a shower, have the warm water hit your back, not breasts. * When your breasts feel full, apply ice packs. Usually three to four times a day helps ease the discomfort. * Take a mild pain medication (Tylenol / Motrin) when you are uncomfortable. If breast feeding: * Use breast milk to lubricate nipples. Lansinoh cream may be used for sore nipples. You do not need to remove cream prior to breast feeding. If using a different brand of cream, check the label for directions regarding removal of cream prior to nursing. * Wear a supportive bra. * If having problems with breasts or breast feeding, call a plan consultant or your health care provider. VITAMINS: * One tablet daily. Continue taking while or until you have your check up in 6 weeks. SPECIAL CARE INSTRUCTIONS: * Vaginal rest (no tampons, douching, intercourse) until after doctor's visit. * control as discussed with doctor. * Verbalizes understanding of car seat law as reviewed with patient by nursing. * Car Seat hand-out given and reviewed with patient by nursing. * Shaken baby information reviewed with patient by nursing. Call you doctor if: * Heavy bleeding (saturating a pad an hour) or passing clots the size of your fist. Bleeding has a foul smelling odor. * A fever greater than 100.4 degrees F (38 degrees C) on two occasions four hours apart and/or chills. * Unusual pain in the pelvic or vaginal areas. Pain should improve each day . * Call the doctor for any increased redness, drainage or swelling around the incision and any pain unrelieved by prescribed pain medication. * Signs and symptoms of phlebitis(possible blood clots forming in the veins): leg pain, warm, red or swollen area on leg. * "Baby Blues" lasting longer than two weeks. If you have any questions or concerns, call your health care practitioner at [phone]. FOLLOW-UP VISIT: Follow-up visit for examination in 6 weeks. Incision check (staple removal) in 1 week. Please call office at [phone] if not already scheduled. . Instructions / Follow-Up Instructions / Follow-Up ACTIVITY RECOMMENDATIONS: * Gradual return to full activity over the next 2-3 weeks. * No lifting - nothing heavier than baby over the next 2-3 weeks. * Do not engage in vigorous exercise, sexual activity or sports for 6 weeks. * Do not drive or operate any motorized equipment for 14 days. * You may shower/bathe daily. DIET: Resume Previous Diet If Breast-feeding: * Increase caloric intake by 500 calories, eat 3 well balanced meals, 2 high protein snacks a day and drink 6-8 8oz. glasses of fluid per day. BREAST CARE: If you are not breast feeding: * Wear a supportive bra 24 hours a day for one to two weeks. * Avoid stimulating your breasts and nipples as much as possible during the first few weeks after delivery. * When taking a shower, have the warm water hit your back, not breasts. * When your breasts feel full, apply ice packs. Usually three to four times a day helps ease the discomfort. * Take a mild pain medication (Tylenol / Motrin) when you are uncomfortable. If breast feeding: * Use breast milk to lubricate nipples. Lansinoh cream may be used for sore nipples. You do not need to remove cream prior to breast feeding. If using a different brand of cream, check the label for directions regarding removal of cream prior to nursing. * Wear a supportive bra. * If having problems with breasts or breast feeding, call a plan consultant or your health care provider. VITAMINS: * One tablet daily. Continue taking while or until you have your check up in 6 weeks. SPECIAL CARE INSTRUCTIONS: * Vaginal rest (no tampons, douching, intercourse) until after doctor's visit. * control as discussed with doctor. * Verbalizes understanding of car seat law as reviewed with patient by nursing. * Car Seat hand-out given and reviewed with patient by nursing. * Shaken baby information reviewed with patient by nursing. Call you doctor if: * Heavy bleeding (saturating a pad an hour) or passing clots the size of your fist. Bleeding has a foul smelling odor. * A fever greater than 100.4 degrees F (38 degrees C) on two occasions four hours apart and/or chills. * Unusual pain in the pelvic or vaginal areas. Pain should improve each day . * Call the doctor for any increased redness, drainage or swelling around the incision and any pain unrelieved by prescribed pain medication. * Signs and symptoms of phlebitis(possible blood clots forming in the veins): leg pain, warm, red or swollen area on leg. * "Baby Blues" lasting longer than two weeks. If you have any questions or concerns, call your health care practitioner at [phone]. FOLLOW-UP VISIT: Follow-up visit for examination in 6 weeks. Incision check (staple removal) in 1 week. Please call office at [phone] if not already scheduled. Current Hospital Diet Patient's current hospital diet: Regular OB Diet Discharge Diet Recommended Diet: Regular Diet Procedures Procedures Performed: Repeat Caesarean Section; Delivery of a live female child at 1129 Pending Studies Studies pending at discharge: no Medical Emergencies . Who to Call and When: Medical Emergencies: If at any time you feel your situation is an emergency, please call 911 immediately. . Non-Emergent Contact Non-Emergency issues call your: Director [facility] Call Non-Emergent contact if: temperature is above 100.5 . . "Provider Documentation" section prepared by Thomas Domingo. .
--- NOTE | 2017-07-04 09:40 | DISCHARGE SUMMARY ---
Mrs. Membreno had a previous low segment section. She requested repeat section at about 39 weeks and 5 days. She was taken to the hospital where under spinal anesthesia she had a repeat low segment section, a moderate amount of adhesions, and also noted that the lower uterine segment was thin. At the time of surgery, we made a good attempt to thicken the lower uterine segment. Her preoperative hemoglobin was 12.5, hematocrit was 37.0. Postoperatively, hemoglobin dropped to 10.3, hematocrit 30.1. She remained afebrile throughout her postoperative course. Bowel sounds returned within 24 hours. At the time of discharge, she was ambulating well, eating well, and given prescriptions for Percocet and Motrin for pain control and told to continue to take 1 vitamin daily as long as she breast fed. She was also given instructions to return next week for removal of quirino.
[2017-07-04 14:35] VITALS: BP_DIAS 84; PULSE 89; TEMP 36.9
== END 2017-07-04 14:35 | disposition home or self-care (01) | DRG 766 ==
LOC: EDSTATUS 08:30 → C.LD 07-01 05:19 → C.OBG 07-01 15:36
PROVIDERS: ADMIT Obstetrics & Gynecology; ATTEND Obstetrics & Gynecology
PROC: 10D00Z1 Extraction of Products of Conception, Low, Open Approach (ICD-10-PCS; principal; 2017-07-01 07:30)
DX: O34.211 Maternal care for low transverse scar from previous cesarean delivery (principal); O09.523 Supervision of elderly multigravida, third trimester; O69.81X1 Labor and delivery complicated by cord around neck, without compression, fetus 1; O36.63X1 Maternal care for excessive fetal growth, third trimester, fetus 1; Z3A.39 39 weeks gestation of pregnancy; Z37.0 Single live birth

== ENCOUNTER 2020-05-25 07:30 | Inpatient (IN) ==
--- NOTE | 2020-04-27 11:01 | Anesthesiology Consultation ---
Date of Service April 27, 2020 Assessment & Plan (1) Encounter for pre-operative examination: Chart Review Chart Review: laborer carpentry dock initiated -We will leave BSG DOS to OB/anesthesiologist discretion (patient with history of gestational diabetes mellitus). Per nursing assessment 04/27/2020, patient denies any recent travel. No known Covid infection in the past 90 days. No known Covid positive contacts or Covid related symptoms. Preop Covid testing scheduled 05/18/20 = will await results. echocardiography done 02/21/2020 (E reason for study: Advanced maternal age, gestational diabetes) = normal echocardiogram. History Surgery Operation Date: 05/25/20 07:30 Proposed Procedures p Section in LD - Maria Elena Brown MD Height/Weight Height: 5 ft 2 in Weight: 63.957 kg Allergies Allergy/AdvReac Type Severity Reaction Status Date / Time No Known Allergies Allergy Verified 04/27/20 10:23 Medications Home Medications Medication Instructions Recorded Confirmed Last Taken prenat.vits,joesph,rwc-rouz-pyhzp 1 tab PO QAM 12/20/18 04/27/20 Unknown acetone (urine) test #50 ea 11/24/19 04/25/20 Unknown blood sugar diagnostic #150 ea 11/24/19 04/25/20 Unknown blood-glucose meter #1 ea 11/24/19 04/25/20 Unknown lancets 33 gauge #150 ea 11/24/19 04/25/20 Unknown aspirin [Aspir-81] 81 mg PO DAILY 04/27/20 04/27/20 Unknown Past Medical History Medical History Constipation Gestational diabetes Past Family History Family History Sister Hypothyroidism Father Diabetes Stroke late 60s Mother Diabetes Hypertension Other No family history of adverse response to anesthesia Denies family history of Ovarian cancer Prostate cancer Depression Heart disease Myocardial infarction Breast cancer Colorectal cancer Past Surgical History Surgical History History of colonoscopy History of D&C S/P section x 2 Social History Smoking Status: Never smoker Do You Dip or Chew Tobacco: No Hx Alcohol Use: No Hx Substance Use: No substance use type: does not use
--- NOTE | 2020-05-24 17:37 | History & Physical Report ---
Date of Service May 24, 2020 Assessment & Plan (1) Previous delivery affecting : 40 y/o at 39 1/7 wga presents for preop for planned repeat CS and BTL VSS NST reactive GDM - reports BG are ok Poly - normal DVP today Discussed indications, risks, benefits, alternatives with risks including infection, bleeding, injury to adjacent structures (bowel, bladder, ureters, blood vessels, nerves, baby), possible need for blood transfusion and/or life saving hysterectomy, VTE. Risks specifically associated with tubal ligation include above surgical risk, risk of regret given permanent procedure to prevent future pregnancies. Pt aware and desires BTL. Discussed given prior op report detailing adhesions, may be possible that I cannot complete BTL safely but will do my best. Pt verbalized understanding. Consent reviewed in detail w/ pt and signed after all questions answered to her satisfaction. History of Present Illness Chief Complaint: Repeat CS Primary Care Provider: Suki Wray PA-C 40 y/o at 39 1/7 wga w/ [facility] 05/30 by LMP c/w [address] [place] [address] who presents for return OB visit and pre-op for planned repeat CS and BTL. +FM; denies ctx, LOF, VB PNI: CSx2 GDM AMA Resolved polyhydramnios Hx pre-eclampsia Past COMPUTER HARDWARE ENGINEER Hx: G1 2012 CS at 39 wks, PIH, FTP G2 2014 IUFD at 20 wks, G3 2016 SAB G4 2018 CS at 39 wks, A1GDM G5 current Menarche 13, cycles q28-30d 10/2019 neg cotest, no hx abnl pap Denies hx STIs Allergies Allergy/AdvReac Type Severity Reaction Status Date / Time No Known Allergies Allergy Verified 05/24/20 08:36 Home Medications Medication Instructions Recorded Confirmed Type prenat.vits,joesph,vop-hdnm-ocnff 1 tab PO QAM 12/20/18 05/24/20 History acetone (urine) test #50 ea 11/24/19 05/24/20 Rx blood sugar diagnostic #150 ea 11/24/19 05/24/20 Rx blood-glucose meter #1 ea 11/24/19 05/24/20 Rx lancets 33 gauge #150 ea 11/24/19 05/24/20 Rx aspirin [Aspir-81] 81 mg PO DAILY 04/27/20 05/24/20 History Patient History Medical History Constipation Gestational diabetes Surgical History History of colonoscopy History of D&C S/P section x 2 Family History Sister Hypothyroidism Father Diabetes Stroke late 60s Mother Diabetes Hypertension Other No family history of adverse response to anesthesia Denies family history of Ovarian cancer Prostate cancer Depression Heart disease Myocardial infarction Breast cancer Colorectal cancer Social History Smoking Status: Never smoker Second Hand Exposure: No; Hx Alcohol Use: No Hx Substance Use: No Preferred Language: Indonesian Communication Ability: Effective Visual Impairment: No Limitations Hearing Ability: Normal Child Welfare Director Required: No Beliefs That Will Affect Care: None marital status: marital status details: Lianne Sethi (37) [phone] Current Living Situation: Spouse and Family Current Living Situation Comment: lives with spouse, parents, 2 daughters, no pets current occupational status: employed 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 Feels Safe at Home: Yes Childhood Exposure to Second-Hand Smoke: No caffeine: Yes Dental Care, Regularly: Yes Physical Activity Frequency: 1-2 Times per Week Seatbelt Use: always Sunscreen Use: Yes Assistive Devices: Contacts Physical Exam Constitutional: well developed and well nourished; no acute distress Respiratory: normal respiratory effort, lungs clear to auscultation no labored breathing Cardiovascular: RRR, no murmur, no edema Gastrointestinal (Abdomen): Inspection/Auscultation: abdomen normal to inspection; abdomen not distended Percussion/Palpation: abdomen soft; abdomen nontender and no guarding Psychiatric: A+Ox3, euthymic affect Genitourinary: OB Exam Abdomen: + heart tones (NST reactive) and + vertex Results & Data ([facility]) Laboratory Results OB Labs: Blood Type A Positive 10/26/19 Antibody Screen NEGATIVE 10/26/19 Hemoglobin 12.5 g/dL (12.0-16.0) 10/26/19 Hematocrit 37.5 % (37-47) 10/26/19 Mean Corpuscular Volume 82.6 fL (80-100) 10/26/19 Platelet Count 333 K/uL (130-400) 10/26/19 Rubella IgG Antibody Immune (Immune) 10/26/19 Rapid Plasma Reagin Nonreactive (Nonreactive) 10/26/19 Hepatitis B Surface Antigen Neg (Neg) 10/26/19 HIV (1&2) Ab and P24 Ag, 4th Gener Neg (Neg) 10/26/19 OB Optional Labs: Chlamydia trachomatis RNA NOT DETECTED (NOT DETECTED) 10/26/19 Neisseria gonorrhoeae RNA NOT DETECTED (NOT DETECTED) 10/26/19 Thyroid Stimulating Hormone (TSH) 3.240 uIu/ml (0.300-4.500) 03/15/18 Labs Reviewed: declined genetics/cf/sma--akh GBS neg covid neg Diagnostic Findings Posterior placenta Coding Level of Care Code None Diagnoses Previous delivery affecting O34.219
[~2020-05-25 07:30] MED LIST changes: +CITRIC ACID/SODIUM CITRATE 15 ML UDC PO SCH; -IRON TAB PO; +LACTATED RINGER'S 1,000 ML IV SCH; -PRENTAB26 PO; +ceFAZolin 2,000 MG in SYRINGE 0 ML IV SCH
[2020-05-25] MEDS ORDERED: LACTATED RINGER'S 1,000 ML IV SCH (08:15)
[2020-05-25 08:41] LABS: Basophils # (auto) 0.01 K/uL (0-0.2); Basophils % (auto) 0.1 %; Eosinophils # (auto) 0.04 K/uL (0-0.5); Eosinophils % (auto) 0.3 %; Hematocrit (blood only) 39.4 % (37-47); Hemoglobin 13.1 g/dL (12.0-16.0); Immature Granulocytes # (auto) 0.03 K/uL (0.00-0.02); Immature Granulocytes % (auto) 0.3 %; Mean Corpuscular Hemoglobin 28.5 pg (25-34); Mean Corpuscular Hgb Conc 33.2 g/dL (32-36); Mean Corpuscular Volume 85.7 fL (80-100); Mean Platelet Volume 12.3 fL (7.4-10.4); Monocytes % (auto) 7.9 %; Neutrophils # (auto) 7.25 K/uL (1.4-6.5); Neutrophils % (auto) 63.4 %; Platelet Count 230 K/uL (130-400); RDW Coefficient of Variation 16.3 % (11.5-14.5); RDW Standard Deviation 49.9 fL (36.4-46.3); White Blood Count 11.43 K/uL (4.8-10.8)
--- NOTE | 2020-05-25 09:09 | History & Physical Bridge Note ---
Date of Service May 25, 2020 History & Physical Bridge Note I have examined the patient, reviewed the History & Physical and in the interval since the performance of the History & Physical I have noted the following changes of clinical significance: no changes noted. Again reviewed permanence of tubal ligation. Reviewed alternatives including OCPs, nuvaring, depo, nexplanon, IUD, delayed permanent sterilization, vasectomy. Pt continues to desire tubal ligation with CS
[2020-05-25] MEDS ORDERED: MoRPHine SULFATE PF 1 MG/ML 10 ML AMP/VIAL ONE (09:29)
[2020-05-25] MEDS ORDERED: ONDANSETRON INJ 2 MG/ML 2 ML VIAL ONE (09:29)
[2020-05-25] MEDS ORDERED: fentaNYL citrate 100 MCG/2 ML VIAL ONE (09:29)
[2020-05-25] MEDS ORDERED: SODIUM CHLORIDE 0.9% INJ 10 ML VIAL ONE (09:29)
[2020-05-25] MEDS ORDERED: OXYTOCIN 10 UNITS/ML VIAL ONE (09:29)
[2020-05-25] MEDS ORDERED: PHENYLEPHRINE HCL 10 MG/ML VIAL ONE (10:13)
[2020-05-25] MEDS ORDERED: ePHEDrine sulfate 50 MG/ML SYR ONE (10:13)
[2020-05-25] MEDS ORDERED: PHENYLEPHRINE 100MCG/ML 5ML SYR ONE (10:13)
[2020-05-25] MEDS ORDERED: KETOROLAC 30 MG/ML VIAL ONE (10:30)
[2020-05-25] MEDS ORDERED: ACETAMINOPHEN 1000 MG/100 ML IV IV PRN (10:34)
[2020-05-25] MEDS ORDERED: ePHEDrine sulfate 50 MG/ML AMP IV PRN (10:34)
[2020-05-25] MEDS ORDERED: MoRPHine SULFATE PF 1 MG/ML 10 ML AMP/VIAL INT SPINAL ONE (10:34)
[2020-05-25] MEDS ORDERED: LACTATED RINGER'S 500 ML IV PRN (10:34)
[2020-05-25] MEDS ORDERED: NALOXONE HCL 0.08 MG in SYRINGE 1.8 ML IV PRN (10:34)
[2020-05-25] MEDS ORDERED: NALOXONE HCL 0.4 MG/1 ML VIAL/CARP IV PRN (10:34)
[2020-05-25] MEDS ORDERED: ONDANSETRON INJ 2 MG/ML 2 ML VIAL IV PRN (10:34)
[2020-05-25] MEDS ORDERED: NALOXONE HCL 1 MG in SODIUM CHLORIDE 0.9% 1000ML 1,000 ML IV PRN (10:34)
[2020-05-25] MEDS ORDERED: HYDROmorphone INJ 0.5 MG/0.5 ML SYR IV PRN (10:34)
[2020-05-25] MEDS ORDERED: diphenhydrAMINE 50 MG/ML VIAL IV PRN (10:34)
[2020-05-25] MEDS ORDERED: SODIUM CHLORIDE 0.9% 1000ML 1,000 ML IV SCH (10:45)
[2020-05-25] MEDS ORDERED: DC INTRASPINAL MORPHINE SCH (10:45)
[2020-05-25] MEDS ORDERED: NO NARCOTICS OR SEDATIVES SCH (10:45)
--- NOTE | 2020-05-25 11:14 | Post Operative Brief Note ---
PG Immediate Post Op with CF Date of Surgery May 25, 2020 Pre & Post Diagnosis Operation Date: 05/25/20 09:50 Pre-Op Diagnosis: Hx of Section x 2; Pt Desires Repeat Section and Sterilization Gestational Diabetes AMA Resolved polyhydramnios Post-Op Diagnosis: Hx of Section x 2; Pt Desires Repeat Section and Sterilization Gestational Diabetes AMA Resolved polyhydramnios Delivered I identified the patient and participated in the time-out.: Yes Procedure Operation Date: 05/25/20 09:50 Actual Procedures p Repeat Low Transverse Section; Live Female at 1018 in OR#3 - Maria Elena Brown MD s , with Bilateral Tubal Ligation(Bilateral) - Maria Elena Brown MD Surgeon Maria Elena Brown MD Cleaning Crew Member MD Daron Estimated Blood Loss 600 Findings Consistent with Post-Op Diagnosis Normal appearing uterus, bilateral fallopian tubes, ovaries. Bladder adhesions noted on lower uterine segment. Small amount of omental adhesion noted. Viable female infant, APGARs 8 and 9 at 1 and 5 minutes Fluids 1800cc crystalloid Specimens Specimen Description: Placenta (Hold) Cord Blood Portions Left and Right Fallopian Tubes Drains Henry Catheter Anesthesia Type Spinal Complications none Disposition Accompanied Patient To Recovery: Yes Disposition: L&D
--- NOTE | 2020-05-25 11:30 | Operative Report ---
PG Post Operative Report Pre & Post Diagnosis Operation Date: 05/25/20 09:50 Pre-Op Diagnosis: Hx of Section x 2; Pt Desires Repeat Section and Sterilization Gestational Diabetes AMA Resolved polyhydramnios Post-Op Diagnosis: Hx of Section x 2; Pt Desires Repeat Section and Sterilization Gestational Diabetes AMA Resolved polyhydramnios Delivered I identified the patient and participated in the time-out.: Yes Procedure Operation Date: 05/25/20 09:50 Actual Procedures p Repeat Low Transverse Section with Bilateral Tubal Ligation; Live Female Infant at 1018 in OR#3 - Maria Elena Brown MD Surgeon Maria Elena Brown MD Public Health Outreach Worker MD Daron Estimated Blood Loss 600 Findings Consistent with Post-Op Diagnosis Normal appearing uterus, bilateral fallopian tubes, ovaries. Bladder adhesions noted on lower uterine segment. Small amount of omental adhesion noted. Viable female , APGARs 8 and 9 at 1 and 5 minutes Fluids 1800cc crystalloid Specimens Placenta (Hold) Cord Blood Portions Left and Right Fallopian Tubes Drains Henry Anesthesia Type Spinal Complications none Disposition Accompanied Patient To Recovery: Yes Disposition: L&D Indications 40 y/o at 39 2/7 wga presents for scheduled repeat section and bilateral tubal ligation. Pt has a history of CSx2 and desires permanent sterilization with this delivery. She was counseled regarding alternatives to permanent sterilization and did continue to desire it. was complicated by AMA, diet controlled gestational diabetes and polyhydramnios that subsequently resolved and had reassuring testing throughout . Description of Procedure The patient was taken to the operating room after consents were ensured. The patient was properly identified. Spinal anesthesia was obtained without difficulty. The patient was placed in a dorsal supine position with left lateral tilt, then prepped and draped in normal sterile fashion. Surgical time out was performed. Antibiotics were given for prophylaxis. Anesthesia was tested to ensure adequate surgical levels. Pfannenstiel skin incision was performed and carried down to the underlying fascia with a knife. The fascia was then nicked in the midline and extended laterally with pickups and Garduno scissors. Superior portion of the fascia was grasped with Kochers x2 and elevated off the underlying rectus muscles using blunt dissection. Inferior portion of the fascia was then grasped with Daniela clamps x2 and also elevated off the underlying muscles with blunt dissection. Midline was identified. The peritoneum was then entered sharply and extended to provide adequate room for delivery of baby after no significant adhesions were noted. The hand was inserted into the abdomen, uterus was noted to be clear of adhesions. Bladder blade was inserted, bladder flap was created in the usual fashion. A low transverse uterine incision was made in the uterus and extended bluntly in a superior to inferior fashion. Amniotomy was made with clear fluid at the time of rupture. head was grasped and elevated through the hysterotomy in an atraumatic fashion. The baby delivered in OLEG position, loose body cord was noted. Remainder of the body delivered without incident. Nose and mouth were bulb suctioned on the surgical field. The cord was double clamped and cut after 30 seconds of delayed cord lamping, baby was handed off to awaiting pediatrics staff. Cord blood was obtained. Placenta was then expressed from the uterus. The uterus was exteriorized. Several passes were made inside the uterus to remove the remaining membranes. Attention was then turned to the hysterotomy, which was then closed with a running locked suture of 0 Vicryl on a CTX needle. An imbricating layer was then performed using 0-Monocryl. There was noted to be good hemostasis. The posterior cul-de-sac was then inspected and cleaned of clot and debris. The hysterotomy was again inspected and noted to be hemostatic. Attention was then turned to the permanent sterilization portion of the procedure. The right fallopian tube was grasped and followed out to the fimbriated end. An avascular portion of the mesosalpinx was identified and a portion of the right fallopian tube was then tied off and excised and handed off for pathology using a modified Jackelyn method with 2-0 plain gut. Tubal site was noted to be hemostatic. The same procedure was then performed the contralateral side. Left tubal site was noted to be hemostatic. Hysterotomy was again noted to be hemostatic. The uterus was returned to the abdomen. The right and left pericolic gutters were cleaned of all clot and debris. The hysterotomy was again noted to be hemostatic. Tubal sites again hemostatic bilaterally. Space of Retzius was noted to be hemostatic. The fascia was then closed with a running suture of 0 Vicryl on a CT1 needle. Subcutaneous tissue was copiously irrigated and noted to be hemostatic. Subcutaneous tissue was re-approximated using 2-0 plain gut. The skin was then closed with a running suture of 3-0 Monocryl in a subcuticular fashion. At termination of the procedure, the fundal pressure was applied and a moderate amount of lochia was expressed. Pressure dressing was applied to the patient. She tolerated the procedure well. All sponge, needle, instrument counts were correct x 2. I attest to the content of the Intraoperative Record and any orders documented therein. Any exceptions are noted below. OB Procedure charges OB Charges 25200 C/S w/ Tubal
[2020-05-25] MEDS ORDERED: HYDROCORTISONE ACETATE 25 MG SUPP PR PRN (12:05)
[2020-05-25] MEDS ORDERED: SUPERCREAM 0.870% 15 GM JAR EXT PRN (12:05)
[2020-05-25] MEDS ORDERED: BENZOCAINE 20% AER SPR 82.5 GM CAN EXT PRN (12:05)
[2020-05-25] MEDS ORDERED: SENNA 8.6 MG TAB PO PRN (12:05)
[2020-05-25] MEDS ORDERED: MAGNESIUM HYDROXIDE SUSP 30 ML UDC PO PRN (12:05)
[2020-05-25] MEDS ORDERED: DIPHTHERIA/TETANUS/PERTUSSIS 0.5 ML SYR/VIAL IM ONE (12:05)
[2020-05-25] MEDS: OXYTOCIN 20 UNITS in LACTATED RINGER'S 1,000 ML IV SCH ×2 (12:44→22:30)
[2020-05-25] MEDS: SIMETHICONE 80 MG CHEW PO SCH ×3 (13:42→21:15)
[2020-05-25] MEDS: KETOROLAC 30 MG/ML VIAL IV PRN ×2 (15:57→21:32)
[2020-05-25] MEDS: DOCUSATE SODIUM 100 MG CAP PO SCH (21:15)
[2020-05-25] MEDS: LACTATED RINGER'S 1,000 ML IV SCH ×3 (21:15→22:04)
[2020-05-26] MEDS: KETOROLAC 30 MG/ML VIAL IV PRN (04:17)
[2020-05-26] MEDS ORDERED: ONDANSETRON INJ 2 MG/ML 2 ML VIAL IV PRN (04:34)
[2020-05-26] MEDS ORDERED: KETOROLAC 30 MG/ML VIAL IV PRN (04:34)
[2020-05-26] MEDS ORDERED: PROMETHAZINE HCL 25 MG in SODIUM CHLORIDE 0.9% 50 ML IV PRN (04:34)
[2020-05-26] MEDS ORDERED: diphenhydrAMINE Capsule 25 MG CAP PO PRN (04:34)
[2020-05-26] MEDS ORDERED: diphenhydrAMINE 50 MG/ML VIAL IV PRN (04:34)
[2020-05-26] MEDS: LACTATED RINGER'S 1,000 ML IV SCH (04:50)
[2020-05-26] MEDS ORDERED: ceFAZolin 2000MG 2,000 MG/15 ML SYR IV SCH (06:00)
[2020-05-26 06:18] LABS: Basophils # (auto) 0.01 K/uL (0-0.2); Basophils % (auto) 0.1 %; Hemoglobin 9.9 g/dL (12.0-16.0); Immature Granulocytes # (auto) 0.03 K/uL (0.00-0.02); Immature Granulocytes % (auto) 0.3 %; Lymphocytes # (auto) 1.99 K/uL (1.2-3.4); Lymphocytes % (auto) 19.5 %; Mean Corpuscular Hemoglobin 28.4 pg (25-34); Mean Platelet Volume 11.3 fL (7.4-10.4); Monocytes # (auto) 0.49 K/uL (0.11-0.59); Monocytes % (auto) 4.8 %; Neutrophils # (auto) 7.57 K/uL (1.4-6.5); Neutrophils % (auto) 74.3 %; Platelet Count 179 K/uL (130-400); RDW Coefficient of Variation 16.3 % (11.5-14.5); RDW Standard Deviation 50.3 fL (36.4-46.3); Red Blood Count 3.49 M/uL (4.2-5.4); White Blood Count 10.19 K/uL (4.8-10.8)
--- NOTE | 2020-05-26 07:53 | Obstetrical Progress Note ---
Date of Service <Lor West DO - Last Filed: 05/26/20 07:53> May 26, 2020 Assessment & Plan <Lor West DO - Last Filed: 05/26/20 07:53> (1) state: POD #1 s/p repeat and BTL - PNL: Rh pos, RI, GBS neg, COVID neg - Feels well today. Eating well, voiding well, ambulating well. - Pain well controlled with ibuprofen 600mg Q4H PRN and percocet 5-325 q4h prn. - Routine care -- OOB, ambulation, diet progression as tolerated - Will continue to monitor uterine fundus height and lochia. - Patient started on ferrous sulfate 325mg po daily yesterday. Hgb today 9.9. - After discharge will have 6 week follow-up with Dr. Brown. Subjective <Lor West DO - Last Filed: 05/26/20 07:53> Dorothy Membreno is a 40 y/o female who is POD #1 following repeat delivery and BTL at 39+2 weeks. She reports feeling well overall this morning. Mild abdominal cramping and 5/10 pain well managed on analgesics. She does report some "hardness" in the right upper abdomen. Voiding without dysuria. Tolerating meals overnight without difficulty, nausea, or vomiting. Patient has been able to ambulate some. She is passing gas. Has persistent lochia with some improvement this morning; denies passing any blood clots. Currently both and supplementing with bottle. Review of Systems Denies fever or chills. Denies shortness of breath or cough. Denies chest pain. Denies breast pain. Denies dysuria. Denies leg pain or leg swelling. Denies headache or changes in vision. Physical Exam <Lor West DO - Last Filed: 05/26/20 07:53> General: Alert, oriented. No acute distress. Cardiac: Regular rate and rhythm. No murmurs. Respiratory: Clear to auscultation bilaterally a/p, no wheezes/rales/rhonchi. No increased work of breathing. Symmetrical chest rise. No respiratory distress. Abdomen: Soft, nontender, nondistended. Bowel sounds present. Uterus: Uterus is boggy, palpable high and to the right. Surgical incision is covered with dressing that is c/d/i. Lower Extremities: No lower extremity edema or swelling. No deep calf pain. Lety's negative bilaterally. Results & Data ([facility]) <Lor West DO - Last Filed: 05/26/20 07:53> Vital Signs (Past 12 Hours) Vital Signs Temp Pulse Resp BP Pulse Ox 05/26/20 04:15 36.6 C 89 16 110/73 96 05/26/20 03:15 16 95 05/26/20 02:15 16 94 05/26/20 01:15 16 94 05/26/20 00:15 16 95 05/25/20 23:15 36.6 C 89 16 107/70 96 05/25/20 22:15 16 95 05/25/20 21:15 18 96 05/25/20 20:15 18 97 <Ethan Neri MD - Last Filed: 05/26/20 07:59> Co-Signing Physician Notes Patient seen and evaluated and agree with the above findings and plan. Uterus deviated to the right 2cm above U. Bleeding minimal with uterine message. Routine post care Resident Activity Tracking <Lor West DO - Last Filed: 05/26/20 07:53> Resident Involvement: Resident Care Provided Care Provided: OB Delivery
[2020-05-26] MEDS: PRENATAL VITAMIN 1 TAB PO SCH (08:28)
[2020-05-26] MEDS: DOCUSATE SODIUM 100 MG CAP PO SCH ×2 (08:28→20:18)
[2020-05-26] MEDS: FERROUS SULFATE 325 MG TAB PO SCH (08:28)
[2020-05-26] MEDS: oxyCODONE/ACETAMINOPHEN 5mg/325mg TAB PO PRN ×3 (08:29→23:12)
[2020-05-26] MEDS: SIMETHICONE 80 MG CHEW PO SCH ×4 (08:29→20:18)
[2020-05-26] MEDS: IBUPROFEN 600 MG TAB PO PRN ×3 (13:41→23:13)
[2020-05-26] MEDS ORDERED: bisacodyL 5 MG TABEC PO SCH (20:00)
[2020-05-27 06:27] LABS: Hematocrit (blood only) 30.8 % (37-47)
--- NOTE | 2020-05-27 08:07 | Obstetrical Progress Note ---
Date of Service May 27, 2020 Assessment & Plan (1) state: 40 yo POD 2 from rLTCS/BTL, doing well -Meeting all pp milestones, H/H stable. -A+/rubella immune/ -desires DC home today, stable to do so. f/u 6 weeks for appt Subjective Ambulation: ambulating normally Voiding: no voiding problems Passing Gas:: Yes Diet Tolerance:: regular diet Lochia:: Small Feeding Type:: breast feeding Pain well managed with medication Review of Systems Denies fevers, chills, n/v, BETT[place]OURT, CP, SOB Physical Exam Constitutional WD/WN, vitals as above no acute distress Respiratory normal respiratory effort, lungs clear to auscultation Cardiovascular RRR, no murmur, no edema Gastrointestinal (Abdomen) Inspection/Auscultation: + abdominal surgical scar (c/d/i) Percussion/Palpation: abdomen soft; abdomen nontender fundus firm at umbilicus and NT Musculoskeletal BLE symmetric, nonerythematous, nontender Results & Data ([facility]) Vital Signs (Past 12 Hours) Vital Signs Temp Pulse Resp BP Pulse Ox 05/26/20 23:10 97.9 F 85 18 126/82 98
[2020-05-27] MEDS: SIMETHICONE 80 MG CHEW PO SCH (08:20)
[2020-05-27] MEDS: PRENATAL VITAMIN 1 TAB PO SCH (08:20)
[2020-05-27] MEDS: FERROUS SULFATE 325 MG TAB PO SCH (08:20)
[2020-05-27] MEDS: IBUPROFEN 600 MG TAB PO PRN (08:20)
[2020-05-27] MEDS: DOCUSATE SODIUM 100 MG CAP PO SCH (08:20)
[2020-05-27] MEDS: oxyCODONE/ACETAMINOPHEN 5mg/325mg TAB PO PRN (09:24)
[2020-05-27] MEDS ORDERED: bisacodyL 10 MG SUPP PR PRN (11:25)
--- NOTE | 2020-05-28 20:33 | Discharge Summary ---
Date of Service May 28, 2020 Admission HPI Per Admitting Provider 40 y/o at 39 1/7 wga w/ CHARITY 05/30 by LMP c/w 1st tri US who presents for return OB visit and pre-op for planned repeat CS and BTL. +FM; denies ctx, LOF, VB PNI: CSx2 GDM AMA Resolved polyhydramnios Hx pre-eclampsia Past [employer] Hx: G1 2012 CS at 39 wks, PIH, FTP G2 2014 IUFD at 20 wks, G3 2016 SAB G4 2018 CS at 39 wks, A1GDM G5 current Menarche 13, cycles q28-30d 10/2019 neg cotest, no hx abnl pap Denies hx STIs Admission Exam (Per Admitting) Constitutional WD/WN, vitals as above Respiratory normal respiratory effort, lungs clear to auscultation Cardiovascular RRR, no murmur, no edema Gastrointestinal (Abdomen) Inspection/Auscultation: abdomen normal to inspection; abdomen not distended Percussion/Palpation: abdomen soft; abdomen nontender and no guarding Genitourinary OB Exam Abdomen: + heart tones (NST reactive) and + vertex Discharge Data Consultations 05/25/20 08:11 Consult Anesthesiology Stat Procedures Performed Operation Date: 05/25/20 09:50 Actual Procedures p Section; Live Female at 1018 in OR#3 - Maria Elena Brown MD s , with Bilateral Tubal Ligation(Bilateral) - Maria Elena Brown MD Hospital Course (1) state: Pt underwent above listed procedure, see operative report for details. Postoperatively, the pt did well and met all milestones and was stable for d/c on POD2 Coding Level of Care Code None Diagnoses state Z39.2
== END 2020-05-27 12:56 | disposition home or self-care (01) | DRG 785 ==
LOC: EDSTATUS 07:30 → 4S1 08:04 → 4S2 14:15
PROC: M.PPTLD (2020-05-25 09:50)